=== PATIENT | male | born 1985 | race Two or more races ===

== ENCOUNTER 2016-09-27 11:37 | Emergency (ER) | payer MEDICAID, OTHER ==
[~2016-09-27] VITALS: Ht 165.1 cm; Wt 74.8 kg
[2016-09-27 11:53] VITALS: BP 118/77
== END 2016-09-27 13:28 | disposition home or self-care (01) ==
LOC: ED 13:22
DX: M92.50 Unspecified juvenile osteochondrosis of tibia and fibula (principal); G89.29 Other chronic pain; M25.562 Pain in left knee; M25.561 Pain in right knee
CPT/HCPCS: 99284